=== PATIENT | male | born 1990 | race African-American/Black ===

== ENCOUNTER 2017-10-27 11:30 | Outpatient (RCR) | payer BC | END 2017-10-29 | disposition home or self-care (01) | LOC: OTH 11:30 | DX: M79.631 Pain in right forearm (principal); M79.641 Pain in right hand ==

== ENCOUNTER 2017-11-17 08:10 | Outpatient (RCR) | payer BC | END 2017-11-28 | disposition home or self-care (01) | LOC: OTH 08:10 | DX: M79.631 Pain in right forearm (principal); M79.641 Pain in right hand ==

== ENCOUNTER 2018-01-05 08:24 | Outpatient (RCR) | payer BC | END 2018-01-28 | disposition home or self-care (01) | LOC: OTH 08:24 | DX: M79.641 Pain in right hand (principal); M79.631 Pain in right forearm ==